=== PATIENT | female | born 1970 | race Caucasian/White ===

== ENCOUNTER 2019-04-05 16:04 | Day surgery (SDC) | payer BC ==
[~2019-04-05] VITALS: Ht 157.5 cm; Wt 105.7 kg
[2019-04-05] VITALS (11 sets, daily range): BP systolic 113–142; BP diastolic 58–73; PULSE 80–94; RESP 18–23; Ht 157.5 cm; Wt 105.7 kg
[~2019-04-05 16:04] MED LIST: ASPI-535 PO; CARV6.2579 PO; DULO30CA47 PO; GABA-526 PO; GLIM4TAB PO; IBUP-1542 PO; LANT3I SC; LEVO175T38 PO; LIRA0.6P SQ; MELO15TA30 PO; METF100010 PO; OMEG-135 PO; ONDA4TAB8 PO; OXYC-279 PO; SIMV40TA3 PO; SITA100T11 PO; TOPI50TA13 PO
--- NOTE | 2019-04-05 16:22 | HPN ---
Date/Time of Note Date/Time of Note DATE: 04/05/19 TIME: 16:22 Interval H&P Admission Note Pt. seen H&P reviewed: No system changes ALBERT MORTON April 05, 2019 16:22
[2019-04-05] MEDS ORDERED: EMPA25TA PO (16:42)
[2019-04-05] MEDS ORDERED: INSU100I33 SC (16:42)
[2019-04-05] MEDS ORDERED: FER325 PO (16:42)
[2019-04-05] MEDS ORDERED: DULO30CA47 PO (16:42)
[2019-04-05] MEDS ORDERED: AMLO-145 PO (16:42)
[2019-04-05] MEDS ORDERED: METO25TA4 PO (16:42)
--- NOTE | 2019-04-05 18:12 | PREAC ---
Date/Time of Note Date/Time of Note DATE: 04/05/19 TIME: 18:10 Anesthesia Eval and Record Evaluation Time Pre-Procedure Interview DATE: 04/05/19 TIME: 18:10 Age 48 Sex female NPO: 8 hrs Preoperative diagnosis carpal tunnel Planned procedure carpal tunnel release Past Medical History Past Medical History: Includes Cardio: HTN, Dyslipidemia Endo: Diabetes GI: Morbid obesity Psych: Depression Surgery & Anesthesia Issues No known issue Meds Anticoagulation: No Beta Valeri within 24 hr: No Reason Beta Valeri not given: Pt. not on B-Valeri Active Scripts Ibuprofen* (Ibuprofen*) 600 Mg Tablet, 600 MG PO Q8 for PAIN AND/OR INFLAMMATION, #30 TAB Prov:JULIA CASEY MD 10/08/16 Reported Medications Duloxetine Hcl* (Duloxetine Hcl*) 30 Mg Capsule., 30 MG PO DAILY, #30 CAP 04/05/19 Insulin Glargine,Hum.rec.anlog (Basaglar Kwikpen U-100) 100 Unit/1 Ml Insuln.pen, 150 UNIT SC, EA 04/05/19 Empagliflozin (Jardiance) 25 Mg Tablet, 25 MG PO DAILY, TAB 04/05/19 Ferrous Sulfate* (Ferrous Sulfate*) 325 Mg Tabec, 325 MG PO DAILY, TAB 04/05/19 Amlodipine Besylate* (Amlodipine Besylate*) 5 Mg Tablet, 5 MG PO DAILY, #30 TAB 04/05/19 Metoprolol Tartrate* (Lopressor*) 25 Mg Tablet, 25 MG PO BID, #60 TAB 04/05/19 Duloxetine Hcl* (Duloxetine Hcl*) 30 Mg Capsule., 30 MG PO BID, #30 CAP 10/08/16 Liraglutide (Victoza 2-Praveen) 0.6 Mg/0.1 Ml Pen.injctr, 1.8 MG SQ AC MEALS, SYR 10/08/16 Levothyroxine Sodium* (Levoxyl*) 175 Mcg Tablet, 200 MCG PO BEFORE BREAKFAST, #30 TAB 10/08/16 Metformin Hcl* (Metformin Hcl*) 1,000 Mg Tablet, 1000 MG PO WITH BREAKFAST DINNE, #30 TAB 10/08/16 Glimepiride* (Glimepiride*) 4 Mg Tablet, 4 MG PO WITH BREAKFAST DINNE, TAB 10/08/16 Aspirin Ec (Aspir 81) 81 Mg Tablet.dr, 81 MG PO DAILY, #30 TAB 12/13/15 Fish Oil* (Fish Oil*) 1,000 Mg Cap, 1000 MG PO BID, CAP 12/13/15 Simvastatin (Simvastatin) 40 Mg Tablet, 40 MG PO DAILY, #30 TAB 12/13/15 Carvedilol* (Carvedilol*) 6.25 Mg Tablet, 6.25 MG PO BID, TAB 12/13/15 Discontinued Reported Medications Insulin Glargine* (Lantus*) 100 Unit/Ml Soln, 0 SC BID, #1 VIAL SLIDING SCALE 10/08/16 Meloxicam* (Mobic*) 15 Mg Tablet, 15 MG PO DAILY, #30 TAB 10/08/16 Topiramate* (Topiramate*) 50 Mg Tablet, 50 MG PO DAILY, TAB 10/08/16 Gabapentin* (Gabapentin*) 600 Mg Tablet, 600 MG PO BID, #60 TAB 12/13/15 Sitagliptin* (Januvia*) 100 Mg Tablet, 100 MG PO DAILY, TAB 12/13/15 Discontinued Scripts Ondansetron Hcl* (Zofran*) 4 Mg Tablet, 4 MG PO Q8H PRN for NAUSEA AND/OR VOMITING, #30 TAB Prov:JULIA CASEY MD 10/08/16 Oxycodone HCl/Acetaminophen (Percocet 5-325 mg Tablet) 1 Each Tablet, 1 EACH PO TID for PAIN, #12 TAB Prov:JULIA CASEY MD 10/08/16 Meds reviewed: Yes Allergies Coded Allergies: No Known Allergy (Unverified , 10/08/16) Allergies Reviewed: Yes Labs/Studies Labs Reviewed: Reviewed by anesthesiologist test: Negative Pre-procedure Exam Last vitals Vital Signs Date Temp Pulse Resp B/P (MAP) Pulse Ox O2 O2 Flow FiO2 Time Delivery Rate 04/05/19 96.5 94 18 142/73 99 Room Air 16:35 (96) Airway: Adequate mouth opening, Adequate thyromental dist Mallampati: Mallampati III Teeth: Normal Lung: Normal Heart: Normal ASA Physical Status ASA physical status: 3 Emergency: None Pre-operative Attestations Prior to commencing anesthesia and surgery, the patient was re-evaluated, there was verification of: *The patient's identity *The results of appropriate recent lab work and preoperative vital signs *The above evaluation not changing prior to induction *Anesthetic plan, risk benefits, alternative and complications discussed with patient/family; questions answered; patient/family understands, accepts and wishes to proceed. BENI BELTRÁN DO April 05, 2019 18:12
[2019-04-05] MEDS ORDERED: POLYMYXIN/BACITRACIN 1L IRRIG ONE (18:16)
[2019-04-05] MEDS ORDERED: ONDANSETRON 4 MG INJ IV PRN (18:30)
[2019-04-05] MEDS ORDERED: KETOROLAC 30 MG INJ IV PRN (18:30)
[2019-04-05] MEDS ORDERED: ACETAMINOPHEN 1000MG/100ML IV 100 ML IVPB ONE (18:30)
[2019-04-05] MEDS ORDERED: CEFAZOLIN 1 GM INJ ONE (18:30)
[2019-04-05] MEDS ORDERED: MIDAZOLAM 1 MG/ML 2 ML INJ ONE (18:30)
[2019-04-05] MEDS ORDERED: KETOROLAC 30 MG INJ ONE (18:30)
[2019-04-05] MEDS ORDERED: FENTAnyl 50 MCG/ML VIAL ONE ×3 (18:31→18:55)
[2019-04-05] MEDS ORDERED: LIDOCAINE 2% (MDV) 20 ML INJ ONE (18:33)
--- NOTE | 2019-04-05 19:16 | OPPN ---
Date/Time of Note Date/Time of Note DATE: 04/05/19 TIME: 19:15 Operative Report Preoperative Diagnosis recurrent left carpal tunnel syndrome Postoperative Diagnosis recurrent left carpal tunnel syndrome Operation/Procedure Performed revision left carpal tunnel release with hypothenar fat flap coverage Surgeon see signature line sociology research assistant none Anesthesia: MAC Estimated blood loss: 0 - 10 ml's Transfusion Required none Specimen none Grafts/Implants none Complications none ALBERT MORTON April 05, 2019 19:16
--- NOTE | 2019-04-05 19:20 | PAC ---
Date/Time of Note Date/Time of Note DATE: 04/05/19 TIME: 19:20 Post-Anesthesia Notes Post-Anesthesia Note Last documented vital signs Vital Signs Date Temp Pulse Resp B/P (MAP) Pulse Ox O2 O2 Flow FiO2 Time Delivery Rate 04/05/19 9805 80 18 125/75 99 Room Air 1920 Activity: WNL Respiratory function: WNL Cardiovascular function: WNL Mental status: Baseline Pain reasonably controlled: Yes Hydration appropriate: Yes Nausea/Vomiting absent: Yes BENI BELTRÁN DO April 05, 2019 19:20
[2019-04-05] MEDS ORDERED: BUPIVACAINE 0.5% (SDV) 30 ML INJ ONE (19:27)
--- NOTE | 2019-04-05 21:00 | OPR ---
DATE OF OPERATION: 04/05/2019 SURGEON: Alfa Zapata MD ANESTHESIA: Local MAC. PREOPERATIVE DIAGNOSIS: Recurrent left carpal tunnel syndrome. POSTOPERATIVE DIAGNOSIS: Recurrent left carpal tunnel syndrome. PROCEDURES: 1. Revision left carpal tunnel release, open. 2. Left hand hypothenar fat flap transfer over the median nerve and carpal tunnel. OPERATIVE FINDINGS: Significant scar tissue formation and compression of the median nerve at the car pal tunnel. INDICATION FOR PROCEDURE: A 48-year-old female who had previous left carpal tunnel release surgery. She had recurrence of symptoms. We discussed the options. The patient elected to proceed with surg ical intervention, understanding the risks and benefits. DESCRIPTION OF PROCEDURE: The patient was seen in the preoperative area. All further questions were answered. Again, she gave informed consent understanding risks and benefits. She was taken to oper ative suite and placed in supine position. Sedation was administered as was Ancef 2 grams IV. Tourn iquet was placed in left upper extremity and left upper extremity was prepped with ChloraPrep stick a nd draped in usual sterile fashion. Esmarch bandage was used to exsanguinate the extremity and tourn iquet was inflated to 250 mmHg. The previous surgical incision was utilized with sharp dissection ca rried down through skin and subcutaneous tissue. Approximately 3 cm incision was utilized. The palm ar aponeurosis was not visible due to significant scar tissue formation. Care was taken to dissect a long the ulnar aspect of the palmaris longus tendon and at the base of the hypothenar. Each layer wa s carefully dissected out with care taken to drift too far ulnarly or radially. I was able to identi fy the transverse carpal ligament deep within the wound with significant scar tissue formation. I en tered the carpal canal and then I carefully dissected out the scar tissue and transverse carpal ligam ent distally as well as proximally dividing it completely. There was significant decompression of th e carpal tunnel contents. The wound was copiously irrigated and attention was then turned to the hyp othenar fat flap. A 2 cm x 1 cm hypothenar fat flap was dissected out with a 15-blade knife deep to dermal layer. The flap was mobilized radially and brought over the carpal tunnel median nerve. The flap was inset over the median nerve and carpal tunnel and sutured to the ulnar flap of the transvers e carpal ligament using 4-0 Monocryl suture. The flap nicely elevated the transverse carpal ligament as well as covered carpal tunnel contents. The wound was copiously irrigated again and skin was colt sed with 5-0 nylon. Xeroform was placed in the wound followed by sterile gauze, Webril and a bias dr whelan. Tourniquet was deflated after 22 minutes. The patient was awakened from anesthesia. She wa s taken to postoperative suite in stable condition, tolerated the procedure well without complication . SPECIMENS: None. ESTIMATED BLOOD LOSS: 5 mL. COUNTS: Sponge, instrument and needle counts were correct. TOURNIQUET TIME: 22 minutes. CONDITION ON DISCHARGE: Stable. The patient was given a nonrefillable 5-day prescription for pain medication surgery today. Dictated By: ALFA HOOPER/LINDA Conf#: [id number] DID#: [id number]
== END 2019-04-05 20:25 | disposition home or self-care (01) ==
LOC: SDS 16:04
PROVIDERS: ATTEND Orthopaedic Surgery Hand Surgery
DX: G56.02 Carpal tunnel syndrome, left upper limb (principal); I10 Essential (primary) hypertension; E11.9 Type 2 diabetes mellitus without complications; Z79.4 Long term (current) use of insulin
CPT/HCPCS: 64721; 82962; J0131; J0690; J1885; J2250; J2405; J3010; Z7512; Z7610

== ENCOUNTER 2019-04-19 13:36 | Day surgery (SDC) | payer BC ==
[2019-04-18 15:00] VITALS: BMI 41.5
[2019-04-19] VITALS (14 sets, daily range): BP systolic 108–144; BP diastolic 57–75; PULSE 86–96; RESP 16–25; Ht 157.5 cm; Wt 106.1 kg
[~2019-04-19] VITALS: Ht 157.5 cm; Wt 106.1 kg
[~2019-04-19 13:36] MED LIST changes: +AMLO-145 PO; +CEFAZOLIN 2 GM/50 ML (PMX) 50 ML IVPB SCH; +EMPA25TA PO; +FER325 PO; -GABA-526 PO; +INSU100I33 SC; +LACTATED RINGER'S 1,000 ML IV SCH; -LANT3I SC; -MELO15TA30 PO; +METO25TA4 PO; -ONDA4TAB8 PO; -OXYC-279 PO; -SITA100T11 PO; -TOPI50TA13 PO
[2019-04-19] MEDS ORDERED: ATOR40TA68 PO (14:11)
[2019-04-19] MEDS ORDERED: PREN-19 PO (14:13)
[2019-04-19] MEDS ORDERED: CHOL100062 PO (14:14)
[2019-04-19] MEDS ORDERED: INSU100I33 SC (14:16)
[2019-04-19] MEDS ORDERED: BUPIVACAINE 0.5% (SDV) 30 ML INJ ONE (14:47)
--- NOTE | 2019-04-19 16:47 | HPN ---
Date/Time of Note Date/Time of Note DATE: 04/19/19 TIME: 16:47 Interval H&P Admission Note Pt. seen H&P reviewed: No system changes ALBERT MORTON April 19, 2019 16:47
[2019-04-19] MEDS ORDERED: LIDOCAINE 1% (MPF) 30 ML INJ ONE (16:54)
[2019-04-19] MEDS ORDERED: LIDOCAINE 100 MG SYRINGE ONE (17:10)
[2019-04-19] MEDS ORDERED: PROPOFOL 100 ML ONE ×2 (17:10→17:40)
[2019-04-19] MEDS ORDERED: MIDAZOLAM 1 MG/ML 2 ML INJ ONE ×2 (17:11→17:32)
[2019-04-19] MEDS ORDERED: FENTAnyl 50 MCG/ML VIAL ONE (17:12)
--- NOTE | 2019-04-19 17:28 | PREAC ---
Date/Time of Note Date/Time of Note DATE: 04/19/19 TIME: : Anesthesia Eval and Record Evaluation Time Pre-Procedure Interview DATE: 04/19/19 TIME: 17:22 Age 48 Sex female NPO: 8 hrs Preoperative diagnosis right thumb trigger finger Planned procedure right thumb trigger finger release Past Medical History Past Medical History: Includes Cardio: HTN Endo: Diabetes Surgery & Anesthesia Issues No known issue Meds Anticoagulation: No Beta Valeri within 24 hr: Yes Reported Medications Insulin Glargine,Hum.rec.anlog (Basaglar Kwikpen U-100) 100 Unit/1 Ml Insuln.pen, 150 UNIT SC QAM, EA 04/19/19 Cholecalciferol* (Vitamin D3*) 1,000 Unit Tablet, 1000 UNIT PO DAILY, TAB 04/19/19 Vit #76/Iron,Carb/FA (Prenatabs Rx Tablet) 1 Each Tablet, 1 EACH PO DAILY, TAB 04/19/19 Atorvastatin* (Atorvastatin*) 40 Mg Tablet, 40 MG PO QHS, #30 TAB 04/19/19 Duloxetine Hcl* (Duloxetine Hcl*) 30 Mg Capsule.dr, 30 MG PO DAILY, #30 CAP 04/05/19 Empagliflozin (Jardiance) 25 Mg Tablet, 25 MG PO DAILY, TAB 04/05/19 Ferrous Sulfate* (Ferrous Sulfate*) 325 Mg Tabec, 325 MG PO DAILY, TAB 04/05/19 Amlodipine Besylate* (Amlodipine Besylate*) 5 Mg Tablet, 5 MG PO DAILY, #30 TAB 04/05/19 Metoprolol Tartrate* (Lopressor*) 25 Mg Tablet, 25 MG PO BID, #60 TAB 04/05/19 Liraglutide (Victoza 2-Praveen) 0.6 Mg/0.1 Ml Pen.injctr, 1.8 MG SQ AC MEALS, SYR 10/08/16 Levothyroxine Sodium* (Levoxyl*) 175 Mcg Tablet, 200 MCG PO BEFORE BREAKFAST, #30 TAB 10/08/16 Metformin Hcl* (Metformin Hcl*) 1,000 Mg Tablet, 1000 MG PO WITH BREAKFAST DINNE, #30 TAB 10/08/16 Glimepiride* (Glimepiride*) 4 Mg Tablet, 4 MG PO WITH BREAKFAST DINNE, TAB 10/08/16 Aspirin Ec (Aspir 81) 81 Mg Tablet.dr, 81 MG PO DAILY, #30 TAB 12/13/15 Fish Oil* (Fish Oil*) 1,000 Mg Cap, 1000 MG PO BID, CAP 12/13/15 Discontinued Reported Medications Insulin Glargine,Hum.rec.anlog (Basaglar Kwikpen U-100) 100 Unit/1 Ml Insuln.pen, 150 UNIT SC, EA 04/05/19 Duloxetine Hcl* (Duloxetine Hcl*) 30 Mg Capsule.dr, 30 MG PO BID, #30 CAP 10/08/16 Simvastatin (Simvastatin) 40 Mg Tablet, 40 MG PO DAILY, #30 TAB 12/13/15 Carvedilol* (Carvedilol*) 6.25 Mg Tablet, 6.25 MG PO BID, TAB 12/13/15 Discontinued Scripts Ibuprofen* (Ibuprofen*) 600 Mg Tablet, 600 MG PO Q8 for PAIN AND/OR INFLAMMATION, #30 TAB Prov:JULIA CASEY MD 10/08/16 Meds reviewed: No Allergies Coded Allergies: No Known Allergy (Unverified , 04/19/19) Allergies Reviewed: Yes Labs/Studies Labs Reviewed: Reviewed by anesthesiologist test: N/A Pre-procedure Exam Last vitals Vital Signs Date Temp Pulse Resp B/P (MAP) Pulse Ox O2 O2 Flow FiO2 Time Delivery Rate 04/19/19 94.9 92 16 122/67 96 Room Air 14:45 (85) Airway: Adequate mouth opening Mallampati: Mallampati III Teeth: Normal Lung: Normal Heart: Normal ASA Physical Status ASA physical status: 3 Emergency: None Planned Anesthetic General/MAC: MAC Pre-operative Attestations Prior to commencing anesthesia and surgery, the patient was re-evaluated, there was verification of: *The patient's identity *The results of appropriate recent lab work and preoperative vital signs *The above evaluation not changing prior to induction *Anesthetic plan, risk benefits, alternative and complications discussed with patient/family; questions answered; patient/family understands, accepts and wishes to proceed. JOSÉ LUIS MICHAELS MD April 19, 2019 17:28
[2019-04-19] MEDS ORDERED: CEFAZOLIN 1 GM INJ ONE (17:38)
[2019-04-19] MEDS ORDERED: ONDANSETRON 4 MG INJ ONE ×2 (17:38→18:44)
--- NOTE | 2019-04-19 17:56 | OPPN ---
Date/Time of Note Date/Time of Note DATE: 04/19/19 TIME: 17:56 Operative Report Preoperative Diagnosis Right trigger thumb Postoperative Diagnosis Right trigger thumb with flexor tendon adhesions Operation/Procedure Performed right trigger thumb release with flexor tendon tenolysis Surgeon see signature line anesthetic assistant none Anesthesia: MAC Estimated blood loss: minimal Transfusion Required none Specimen none Grafts/Implants none Complications none ALBERT MORTON April 19, 2019 17:56
--- NOTE | 2019-04-19 18:37 | PAC ---
Date/Time of Note Date/Time of Note DATE: 04/19/19 TIME: 18:36 Post-Anesthesia Notes Post-Anesthesia Note Last documented vital signs Vital Signs Date Temp Pulse Resp B/P (MAP) Pulse Ox O2 O2 Flow FiO2 Time Delivery Rate 04/19/19 92 23 142/73 92 Room Air 18:21 (96) 04/19/19 6.0 18:13 04/19/19 98.0 17:58 Activity: WNL Respiratory function: WNL Cardiovascular function: WNL Mental status: Baseline Pain reasonably controlled: Yes Hydration appropriate: Yes Nausea/Vomiting absent: Yes JOSÉ LUIS MICHAELS MD April 19, 2019 18:37
[2019-04-19] MEDS: HYDROmorphONE 1 MG/5 ML IV SYRINGE IV PRN ×2 (18:42→18:49)
[2019-04-19] MEDS ORDERED: ONDANSETRON 4 MG INJ IV PRN (19:00)
--- NOTE | 2019-04-19 20:45 | OPR ---
DATE OF OPERATION: 04/19/2019 SURGEON: Albert Zapata MD ANESTHESIA: Local MAC. PREOPERATIVE DIAGNOSIS: Right trigger thumb. POSTOPERATIVE DIAGNOSES: 1. Right trigger thumb. 2. Right thumb flexor pollicis longus tendon adhesions. PROCEDURES: 1. Right trigger thumb release. 2. Right thumb flexor pollicis longus tendon tenolysis. OPERATIVE FINDINGS: Stenosing tenosynovitis, right thumb flexor sheath with tendon adhesions of the flexor pollicis longus tendon. INDICATION FOR PROCEDURE: A 48-year-old female with longstanding right trigger thumb, who had a lock ed trigger on the right side. She had minimal range of motion at the thumb. We discussed the option s. The patient elected to proceed with surgical intervention, understanding risks and benefits. DESCRIPTION OF PROCEDURE: The patient was seen in the preoperative area and all further questions we re answered. Again, she gave informed consent understanding risks and benefits. She was taken to [facility] operative suite and placed in supine position. Sedation was administered as was Ancef 2 grams IV. Tourniquet placed in the right upper extremity and right upper extremity was prepped with ChloraPrep stick and draped in usual sterile fashion. Esmarch bandage was used to exsanguinate the extremity a nd tourniquet inflated to 250 mmHg. A digital nerve block was performed at the base of the right khoi mb with a 7 mL volume of 0.5% Marcaine injected at the base of the thumb. After adequate anesthesia, a transverse incision was made at the MP crease with sharp dissection carried down through skin and subcutaneous tissue. Tenotomy scissors were used to divide the soft tissues overlying the flexor she ath. The flexor sheath was visualized and was incised along its midline with a complete division of the A1 marcella. The oblique marcella was preserved. The thumb was ranged and there was found to be min imal glide due to flexor tendon adhesions. A flexor tendon tenolysis was performed of the flexor max licis longus tendon with tenotomy scissors and Adson forceps. After tenolysis, the tendon glided smo othly. The wound was copiously irrigated. Skin closed with 5-0 nylon. Xeroform placed over the wou nd followed by sterile gauze, Webril, and bias bandage. Tourniquet deflated after 8 minutes. The pa tient was awakened from anesthesia. She was taken to postoperative suite in stable condition, tolera leslie the procedure well without complication. SPECIMENS: None. ESTIMATED BLOOD LOSS: 5 mL. COUNTS: Sponge, instrument, needle counts correct. TOURNIQUET TIME: 8 minutes. CONDITION ON DISCHARGE: Stable. The patient was given a non-refillable 5-day prescription for pain medication for surgery today. Dictated By: ALBERT HOOPER/LINDA Conf#: [id number] DID#: [id number]
== END 2019-04-19 19:10 | disposition home or self-care (01) ==
LOC: SDS 13:36
PROVIDERS: ATTEND Orthopaedic Surgery Hand Surgery
DX: M65.311 Trigger thumb, right thumb (principal); I10 Essential (primary) hypertension; E11.9 Type 2 diabetes mellitus without complications
CPT/HCPCS: 26055; 82962; J0690; J1170; J2001; J2250; J2405; J3010; Z7512; Z7610